=== PATIENT | female | born 1990 | race Caucasian/White ===

== ENCOUNTER 2016-08-22 17:48 | Emergency (ER) | payer OTHER ==
[2016-08-22] MEDS ORDERED: ACETAMINOPHEN 160 MG/5 ML ORAL.SOLN UDCUP ONE (18:43)
[2016-08-22] MEDS ORDERED: IBUPROFEN 100 MG/5 ML SYRINGE ONE (18:44)
== END 2016-08-22 19:10 | disposition home or self-care (01) ==
LOC: ED 17:48
DX: K04.7 Periapical abscess without sinus (principal)
CPT/HCPCS: 99283 ×2; A9270 ×2